=== PATIENT | female | born 1935 | race Caucasian/White ===

== ENCOUNTER 2020-10-15 21:25 | Emergency (ER) | payer MEDICARE ==
[~2020-10-15] VITALS: Ht 162.6 cm; Wt 73.0 kg
[2020-10-15 22:16] LABS: APPEARANCE,URINE CLEAR (CLEAR); BILIRUBIN,URINE NEGATIVE (NEGATIVE); GLUCOSE, URINE (UA) NEGATIVE (NEGATIVE); KETONES,URINE NEGATIVE (NEGATIVE); LEUKOCYTE ESTERASE ,URINE NEGATIVE (NEGATIVE); NITRATE,URINE NEGATIVE (NEGATIVE); OCCULT BLOOD,URINE NEGATIVE (NEGATIVE); PH,URINE 5.5 (5.0-8.0); PROTEIN,URINE NEGATIVE (NEGATIVE); UROBILINOGEN,URINE 0.2 mg/dL (<=1.0)
[2020-10-15 22:20] LABS: GLUCOSE,POINT OF CARE 103 MG/DL (70-110)
[2020-10-15 22:28] LABS: BACTERIA,URINE Rare /HPF (None Seen); RBC,URINE 0-2 /HPF (0-2); SQUAMOUS EPITHELIAL CELL,UR Few /LPF (None Seen); WBC,URINE 0-2 /HPF (0-5)
[2020-10-15] MEDS ORDERED: GABA-1216 PO (22:57)
[2020-10-15] MEDS ORDERED: CALC-1038 PO (23:02)
[2020-10-15] MEDS ORDERED: ASPI-1450 PO (23:02)
[2020-10-15] MEDS ORDERED: ATOR10TA84 PO (23:02)
[2020-10-16] MEDS ORDERED: HYDROCODONE/ACETAMINOPHEN 5-325 MG TABLET PO ONE (02:45)
[2020-10-16 02:55] VITALS: BP 153/99
== END 2020-10-16 02:22 | disposition home or self-care (01) ==
LOC: EMS 21:25
DX: M54.9 Dorsalgia, unspecified (principal); W18.2XXA Fall in (into) shower or empty bathtub, initial encounter; Y93.89 Activity, other specified; Y92.89 Other specified places as the place of occurrence of the external cause; Y99.8 Other external cause status
CPT/HCPCS: 70450; 72100; 72125; 72170; 81001; 82962; 99285